=== PATIENT | female | born 1970 | race Caucasian/White ===

== ENCOUNTER 2023-04-20 12:09 | Outpatient (REF) | payer MEDICARE, MEDICAID, SELFPAY ==
[2023-04-20 13:28] LABS: Bilirubin Urine NEGATIVE (NEGATIVE); Blood Urine NEGATIVE (NEGATIVE); Clarity Urine CLEAR (CLEAR); Color Urine LT. YELLOW (YELLOW); Glucose Urine UA NEGATIVE (NEGATIVE); Ketones Urine NEGATIVE (NEGATIVE); Leukocyte Esterase Urine NEGATIVE (NEGATIVE); Nitrite Urine NEGATIVE (NEGATIVE); Protein Urine NEGATIVE (NEG/TRACE); Specific Gravity Urine <=1.005 (1.005-1.025); Urobilinogen Urine 0.2 EU/dL (0.2-1.0)
[2023-04-20 13:33] LABS: Urine Microscopic Indicated NO
== END 2023-04-20 12:10 ==
LOC: LAB 12:09
PROVIDERS: PCP Family Medicine; Visit Provider Family Medicine
DX: Z01.812 Encounter for preprocedural laboratory examination (principal)
CPT/HCPCS: 81003

== ENCOUNTER 2023-12-21 09:05 | Outpatient (OUT) | payer MEDICARE, MEDICAID, SELFPAY ==
--- NOTE | 2023-12-21 09:30 | NM_ITS ---
Patient Name: GLORY ABEL MR#: [id number] : 1970 Exam Date: 12/21/2023 Ordering Doctor: MIGUELINA DUNHAM RADIOLOGY REPORT PROCEDURE: NM KURTIS PERF SPECT REST STR COMPARISON: None. INDICATIONS: CORONARY ARTERY DISEASE, DYSPNEA ON EXERTION, CHEST PAIN TECHNIQUE: Exam Description: Stress/Rest two day protocol gated SPECT Rest Imagin.9 mCi Tc-99m Cardiolite IV on 12/21/2023 Stress Imaging 25.5 mCi Tc-99m Cardiolite IV on Exercise Protocol: 0.4 mg Lexiscan given IV Heart Rate (bpm): Rest: 80 Max: 85 PMHR: 51 Blood Pressure: Rest: 128/60 Max: 128/60 Symptoms: Rest and peak stress ECG findings were pending and the exercise portion of the study was pending per attending physician Dr. TAPIA . For more details please see separate cardiac stress test report. FINDINGS: QUALITY OF STUDY: Good. PERFUSION DEFECT: LOCATION: Basal anterior. Mid-anterior. Apical anterior. SIZE: Medium (3-4 segments). SEVERITY: Mild. TYPE: Reversible. WALL MOTION: Normal. LV SIZE: Normal. 114 mL. TID / TCD: None; 0.9 LVEF: Normal. Calculated EF 76%. SUMMARY: Myocardial perfusion imaging study has ABNORMAL findings. CONCLUSION: 1. Mildly decreased radiotracer uptake uniformly throughout the anterior wall on stress imaging when compared to rest imaging, with relatively normal perfusion during rest imaging; acute ischemia versus breast attenuation artifact. 2. Normal ventricle size, wall motion, and ejection fraction. Dictated by: Francisco Stacy M.D. on 12/30/2023 at 12:03 Approved by: Francisco Stacy M.D. on 12/30/2023 at 12:08
[2023-12-21 10:24] LABS: Anion Gap 12.8; BUN Creatinine Ratio 22.4; Calcium 9.3 mg/dL (8.5-10.1); Carbon Dioxide 30.5 mmol/L (21.0-32.0); Chloride 99 mmol/L (98-107); Estimated GFR (African America 26 (>=60); Estimated GFR (Non-African Ame 21 (>=60); Glucose 103 mg/dL (74-106); Potassium 3.3 mmol/L (3.5-5.1); Sodium 139 mmol/L (136-145)
--- NOTE | 2023-12-21 10:51 | CA_ITS ---
Patient Name: GLORY ABEL MR#: [id number] : 1970 Exam Date: 12/21/2023 Ordering Doctor: MIGUELINA DUNHAM ECHOCARDIOGRAM REPORT PROCEDURE: CA ECHO W/ CON INDICATIONS: ASHD, MOONEY, Precordial pain COMPARISON: None. DESCRIPTION: COMPLETE ECHOCARDIOGRAM Real-time transthoracic echocardiography with 2D, M-mode, spectral and color flow Doppler performed. QUALITY: Lumason contrast was administered due to suboptimal imaging for left ventricular opacification to improve delineation of endocardial boarders. LEFT VENTRICLE: Normal chamber size. Borderline left ventricular hypertrophy. LV EF: Global left ventricular systolic function is normal. Calculated left ventricular ejection fraction is 63%. No wall motion abnormalities. DIASTOLIC: Diastolic function is indeterminate. ATRIAL SEPTUM: Inadequately seen. LEFT ATRIUM: Mild dilatation. RIGHT ATRIUM: Mild dilatation. RIGHT VENTRICLE: Mild dilatation. Normal right ventricular systolic function. Pacer wire present. TRICUSPID VALVE: Normal mobility and thickness. No stenosis with trivial regurgitation. Mild pulmonary hypertension. RVSP 37mmHg MITRAL VALVE: Normal mobility and thickness. No evidence of mitral valve stenosis. Mitral annular calcification. Trivial mitral regurgitation. AORTIC VALVE: Normal trileaflet appearance. No visible sclerosis. Normal leaflet mobility. No evidence of aortic valve stenosis. No aortic regurgitation. AORTIC ROOT: Normal diameter and appearance. PULMONIC VALVE: Normal thickness and mobility. No stenosis. Mild regurgitation. PERICARDIUM: No evidence of pericardial effusion. IVC: Collapses with inspirations. Normal size. CONCLUSION: 1. Global left ventricular systolic function is normal; visually estimated ejection fraction is 60 to 65% 2. Borderline left ventricular hypertrophy 3. Right ventricle is mildly dilated with normal systolic function 4. Diastolic function is indeterminate 5. Biatrial enlargement 6. Mildly elevated right ventricular systolic pressure 7. Mild pulmonic regurgitation Adult Echocardiography Procedure Report Left Ventricle LVEDD (3.7 - 5.6 cm): 5.27 cm LVESD (2.2 - 4.0 cm): 3.59 cm LVIVS thickness (0.6 - 1.2 cm): 1.07 cm LVPW thickness (0.5 - 1.0 cm): 0.86 cm e': 0.14 m/s E - e': 4.97 LVOT Max Gradient: 2.99 mm[Hg] LVOT Area (cm2): 0.86 m/s Peak Velocity (LVOT): 0.86 m/s Mean Velocity (LVOT): 0.61 m/s LVOT Diameter 2.19 cm Left Ventricular Ejection Fraction: 63.40 % Left Atrium LA Volume Index (2D A2C): 41.96 ml/m2 Left Atrium Systolic Dimension: 4.09 cm Mitral Valve MV E to A Ratio: 0.87 Mitral Valve A-Wave Peak Velocity: 0.80 m/s Mitral Valve E-Wave Peak Velocity: 0.69 m/s Right Ventricle RV Internal Diastolic Dimension: 4.14 cm Aorta AO Root Diam: 3.63 cm Ascending Ao Diam: 3.43 cm Aortic Valve AoV Area (Peak Doni): 2.30 cm2, 2.30 cm2 AoV Area (VTI): 2.63 cm2, 2.63 cm2 Peak Velocity(Antegrade Flow): 1.42 m/s Peak Gradient(Antegrade Flow): 8.03 mm[Hg] Mean Velocity(Antegrade Flow): 0.94 m/s Mean Gradient(Antegrade Flow): 4.18 mm[Hg] Velocity Time Integral: 31.02 cm Tricuspid Valve Peak Velocity (Regurgitant Flow): 2.79 m/s, 2.90 m/s, 2.65 m/s Pulmonic Valve Mean Gradient: 3.35 mm[Hg], 2.69 mm[Hg] Mean Velocity: 0.89 m/s, 0.78 m/s Peak Velocity: 1.07 m/s Peak Gradient: 4.94 mm[Hg], 4.19 mm[Hg] Right Atrium Right Atrium Systolic Pressure: 69.58 ml, 69.58 ml Dictated by: Citlali Belle M.D. on 12/21/2023 at 16:55 Approved by: Citlali Belle M.D. on 12/21/2023 at 17:00
[2023-12-21] MEDS: SULFUR HEXAFLUORIDE MICROSPHR 25 MG (5ML VIAL) IV (12:02)
== END 2023-12-21 09:06 | disposition home or self-care (01) ==
LOC: NM 09:08
PROVIDERS: PCP Family Medicine; Visit Provider Nurse Practitioner
DX: R06.09 Other forms of dyspnea (principal); R07.2 Precordial pain
CPT/HCPCS: 36415; 78452; 80048; A9500; C8929; Q9950

== ENCOUNTER 2023-12-29 09:08 | Outpatient (OUT) | payer MEDICARE, MEDICAID, SELFPAY ==
[2023-12-29] MEDS: REGADENOSON 0.4 MG/5 ML SYRINGE IV (09:52)
--- NOTE | 2024-01-01 | PCN_ITS ---
CARDIAC STRESS TEST Requesting Physician: Qian Matos NP Procedure Date: 01/01/2024 PERFORMING PROVIDER: Suresh Fung M.D. INDICATIONS: Chest pain, dyspnea on exertion. STRESS TEST TYPE: Lexiscan myocardial perfusion imaging. RESTING HEART RATE: 80 PEAK HEART RATE: 85 RESTING BLOOD PRESSURE: 128/60 PEAK BLOOD PRESSURE: 128/60 ST CHANGES: No ST changes meeting the criteria of ischemia. SYMPTOMS: No symptoms. No chest pain. CONCLUSIONS: 1. Resting EKG has normal sinus rhythm with prolonged QT interval. 2. There were no ST changes meeting the criteria for ischemia post Lexiscan infusion. 3. Clinical correlation advised. 4. Please refer to separately interpreted and reported nuclear myocardial perfusion imaging report. [facility]
== END 2023-12-29 09:09 | disposition home or self-care (01) ==
LOC: CARD 09:08
PROVIDERS: PCP Family Medicine; Visit Provider Nurse Practitioner
DX: I25.10 Atherosclerotic heart disease of native coronary artery without angina pectoris (principal); E11.9 Type 2 diabetes mellitus without complications; R06.09 Other forms of dyspnea; R07.2 Precordial pain
CPT/HCPCS: 93017; J2785